=== PATIENT | female | born 1970 | race Caucasian/White ===

== ENCOUNTER 2025-04-24 15:45 | Emergency (ER) | payer OTHER ==
[~2025-04-24] VITALS: Ht 152.4 cm; Wt 76.0 kg
[2025-04-24 16:16] VITALS: O2SAT 99
[2025-04-24 16:32] LABS: BASOPHILS % 0.5 % (0.0-2.0); EOSINOPHILS % 1.5 % (0.0-5.0); HEMATOCRIT. 36.7 % (36.0-48.0); HEMOGLOBIN. 12.8 g/dL (12.0-16.0); LYMPHOCYTES % 33.0 % (20.0-50.0); MEAN PLATELET VOLUME 10.0 fl (7.4-10.4); MONOCYTES % 7.7 % (2.0-8.0); NEUTROPHILS % 57.3 % (40.0-76.0); PLATELET 175 x1000/uL (130-400); RED BLOOD CELL COUNT 3.81 mill/uL (4.2-5.4); RED CELL DISTRIBUTION WIDTH 13.3 % (11.6-14.6)
[2025-04-24 16:53] LABS: CREATININE 0.8 mg/dL (0.6-1.0); UREA NITROGEN BLOOD 13 mg/dL (9-23)
[2025-04-24 16:55] LABS: ASPARTATE AMINOTRANSFERASE 149 IU/L (<34); BILIRUBIN DIRECT 2.8 mg/dL (<=3.0); BILIRUBIN TOTAL 4.6 mg/dL (0.1-1.0); PROTEIN TOTAL 7.4 g/dL (6.0-8.3)
[2025-04-24 21:32] VITALS: BP 156/72; PULSE 57; RESP 16; TEMP 37.1; O2SAT 100
== END 2025-04-24 21:58 | disposition short-term general hospital (02) ==
LOC: ER 15:45 → CMPBEDREQ 04-25 08:55
DX: K83.1 Obstruction of bile duct (principal); K86.9 Disease of pancreas, unspecified; Z98.890 Other specified postprocedural states
CPT/HCPCS: 36415; 76705; 80048; 80076; 85025; 99285

== ENCOUNTER 2025-07-26 22:27 | Emergency (ER) | payer MEDICAID, OTHER ==
[~2025-07-26] VITALS: Ht 162.6 cm; Wt 65.0 kg
[2025-07-26 22:37] VITALS: O2SAT 98
[2025-07-26 23:17] LABS: HEMATOCRIT. 35.5 % (36.0-48.0); HEMOGLOBIN. 12.1 g/dL (12.0-16.0); MEAN PLATELET VOLUME 8.0 fl (7.4-10.4); PLATELET 170 x1000/uL (130-400); RED BLOOD CELL COUNT 4.18 mill/uL (4.2-5.4); RED CELL DISTRIBUTION WIDTH 15.2 % (11.6-14.6)
[2025-07-26] MEDS: PIPERACILLIN/TAZO 3.375G/50ML 50 ML IV ONE (23:18)
[2025-07-26] MEDS: VANCOMYCIN 1G PREMIX 200 ML IV ONE (23:23)
[2025-07-26 23:27] LABS: INR 1.3
[2025-07-26 23:35] LABS: CREATININE 0.7 mg/dL (0.6-1.0)
[2025-07-26 23:36] LABS: TROPONIN I HIGH SENSITIVITY 14 ng/L (3.0-34); UREA NITROGEN BLOOD 10 mg/dL (9-23)
[2025-07-26 23:37] LABS: ASPARTATE AMINOTRANSFERASE 41 IU/L (<34)
[2025-07-26 23:38] LABS: BILIRUBIN DIRECT 0.4 mg/dL (<=3.0); BILIRUBIN TOTAL 0.9 mg/dL (0.1-1.0); PROTEIN TOTAL 6.7 g/dL (6.0-8.3)
[2025-07-27 00:08] LABS: BAND% 26.0 % (1.0-6.0); LYMPHOCYTES % MANUAL 7.0 % (20.0-60.0); METAMYELOCYTES % 2.0 % (0-0); NEUTROPHILS % MANUAL 65.0 % (45.0-75.0); PLATELET ESTIMATE NORMAL
[2025-07-27] MEDS: SODIUM CHLORIDE 0.9% (SEPSIS BOLUS) IV ONE (00:25)
[2025-07-27] MEDS: POTASSIUM CHLORIDE 20MEQ/PACKET PO ONE (00:48)
[2025-07-27 01:44] LABS: TROPONIN I HIGH SENSITIVITY 20 ng/L (3.0-34)
[2025-07-27 03:07] VITALS: BP 97/61; PULSE 90; RESP 26; TEMP 36.8; O2SAT 99
[2025-07-27 03:07] LABS: CLARITY URINE CLEAR (CLEAR); COLOR URINE YELLOW (YELLOW); GLUCOSE URINE NEGATIVE (NEGATIVE); KETONES URINE 2+ (NEGATIVE); LEUKOCYTE ESTERASE URINE NEGATIVE (NEGATIVE); NITRITE URINE NEGATIVE (NEGATIVE); OCCULT BLOOD URINE NEGATIVE (NEGATIVE); PH URINE 6.5 (4.5-8.0); PROTEIN URINE NEGATIVE (NEGATIVE); SPECIFIC GRAVITY URINE 1.006 (1.005-1.030); UROBILINOGEN URINE 0.2 E.U./dL (0.2-1.0)
[2025-07-27] MEDS ORDERED: IOHEXOL-300 100 ML BOTTLE ONE (06:52)
== END 2025-07-27 03:44 | disposition short-term general hospital (02) ==
LOC: ER 22:27 → EDBEDREQTM 07-27 01:14 → EDBEDREQ 07-27 01:14 → EDBEDREQDT 07-27 01:14 → ER 07-27 03:44 → CMPBEDREQ 07-27 04:26
DX: C25.9 Malignant neoplasm of pancreas, unspecified (principal); D72.825 Bandemia; Z90.411 Acquired partial absence of pancreas; Z90.49 Acquired absence of other specified parts of digestive tract; Z92.3 Personal history of irradiation; Z53.1 Procedure and treatment not carried out because of patient's decision for reasons of belief and group pressure
CPT/HCPCS: 99291; 96365; 80076; 80048; 83605; 83690; 83735; 85025; 85610; 87040; 87186; 84484 ×2; 87077; 36415 ×2; 84145; 71045; 93005; 96368; 74177; 81003; 87086; J2543; J3373; Q9967; J7030; 96366